=== PATIENT | male | born 1935 | race Caucasian/White ===

== ENCOUNTER 2018-09-04 12:39 | Emergency (ER) | payer MEDICARE, OTHER ==
[2018-09-04 12:47] VITALS: BP 106/61
--- NOTE | 2018-09-04 13:14 | ED Physician Documentation ---
PD HPI UPPER EXT INJURY - Stated complaint Stated Complaint: RT ARM LAC - Chief complaint Chief Complaint: Laceration - History obtained from History obtained from: Patient, Family - History of Present Illness Location: Right, Forearm Type of injury: Fall Where injury occurred: Home Timing - onset: How many days ago (6) Timing - duration: Days (6) Timing - details: Abrupt onset, Still present Improved by: Rest, Immobilization, Dressing Worsened by: Moving, Palpating Associated symptoms: No: Weakness, Numbness, Tingling, Swelling, Discolored Contributing factors: Anticoagulated Similar symptoms before: Diagnosis (skin avulsions) Recently seen: Not recently seen - Additonal information Additional information: Deviously well 83-year-old male with a history of atrial fibrillation who is on Coumadin has developed a thin skin tear to his right forearm that he has been nursing at home. He has been having some trouble with the dressing pulling off the eschar and causing bleeding and he is now developed some swelling and tracking of the blood and a dark line in the arm that is concerning to him. Review of Systems Constitutional: denies: Fever, Chills Eyes: denies: Decreased vision Ears: denies: Ear pain Nose: denies: Congestion Throat: denies: Sore throat Respiratory: denies: Cough GI: denies: Vomiting PD PAST MEDICAL HISTORY - Allergies Allergies/Adverse Reactions: Allergies Allergy/AdvReac Type Severity Reaction Status Date / Time No Known Drug Allergies Allergy Verified 09/04/18 12:45 PD ED PE NORMAL - Vitals Vital signs reviewed: Yes (normal ) - General General: No acute distress, Well developed/nourished - HEENT HEENT: Atraumatic, PERRL, EOMI - Respiratory Respiratory: No respiratory distress - Derm Derm: Normal color, Warm and dry - Extremities Extremities: No deformity, No edema, Other (There is a thin skin avulsion to the right forearm dorsal surface about mid forearm. This is about 3cm X 1.5cm and looks to be granulating well without signs of inflamation. There is blood tracking under the skin and causing a black outline of the border. The area does not look infected. 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, No motor deficit, No sensory deficit, Normal speech Eye Opening: Spontaneous Motor: Obeys Commands Verbal: Oriented GCS Score: 15 - Psych Psych: Normal mood, Normal affect Results - Vitals Vitals: Vital Signs - 24 hr 09/04/18 12:44 Temperature 37.0 C Heart Rate 97 Respiratory 18 Rate Blood Pressure 106/61 O2 Saturation 99 Oxygen O2 Source Room air PD MEDICAL DECISION MAKING - ED course Complexity details: considered differential, d/w patient, d/w family ED course: 83-year-old male with a skin avulsion that is healing has some blood tracking under the skin wound does not appear infected a nonadherent dressing is applied he is up-to-date on his tetanus. Departure - Departure Disposition: 01 Home, Self Care Clinical Impression: Avulsion of skin of forearm Qualifiers: Encounter type: initial encounter Laterality: right Qualified Code(s): S51.801A - Unspecified open wound of right forearm, initial encounter Condition: Stable Instructions: ED Avulsion Dermal Follow-Up: Richard Marie MD [Primary Care Provider] -
== END 2018-09-04 13:44 | disposition home or self-care (01) ==
LOC: ED 12:39
DX: S51.811A Laceration without foreign body of right forearm, initial encounter (principal); W45.8XXA Other foreign body or object entering through skin, initial encounter; I48.91 Unspecified atrial fibrillation; Z79.01 Long term (current) use of anticoagulants
CPT/HCPCS: 85610; 99282; 99283

== ENCOUNTER 2019-10-07 19:58 | Outpatient (CLI) | payer MEDICARE, OTHER | END 2019-10-07 19:59 | disposition short-term general hospital (02) | LOC: EMS 19:58 | PROVIDERS: ATTEND Surgery | DX: R10.30 Lower abdominal pain, unspecified (principal); M54.5 Low back pain; R53.83 Other fatigue | CPT/HCPCS: A0425; A0429 ==

== ENCOUNTER 2019-11-15 12:51 | Outpatient (CLI) | payer MEDICARE, OTHER | END 2019-11-15 12:52 | disposition short-term general hospital (02) | LOC: EMS 12:51 | PROVIDERS: ATTEND Surgery | DX: R52 Pain, unspecified (principal); R13.10 Dysphagia, unspecified; R50.9 Fever, unspecified | CPT/HCPCS: A0425; A0427; A0888 ==

== ENCOUNTER 2019-12-07 20:25 | Outpatient (CLI) | payer MEDICARE, OTHER | END 2019-12-07 20:26 | disposition EMS.NT | LOC: EMS 20:25 | PROVIDERS: ATTEND Surgery | DX: S51.011A Laceration without foreign body of right elbow, initial encounter (principal); W18.39XA Other fall on same level, initial encounter; Y92.009 Unspecified place in unspecified non-institutional (private) residence as the place of occurrence of the external cause ==